=== PATIENT | female | born 1990 | race Caucasian/White ===

== ENCOUNTER 2016-10-18 02:08 | Emergency (ER) | payer SELFPAY ==
[~2016-10-18 02:08] MED LIST: AUGMENTIN 875-1 EAC2 PO; LASIX40 M1 PO; NO HOME MEDICATION XX; NORCO 5-325 TA1 EACH PO; POTASSIUM CHLO20 ME3 PO; PROBIOTIC1 EA10 PO; ZOFRAN ODT4 MG PO
[2016-10-18 03:20] LABS: ANION GAP 8 mmol/L (0-20); BLOOD UREA NITROGEN 12 mg/dl (6-24); C-REACTIVE PROTEIN 4.6 mg/dl (0-0.9); CALCIUM 8.8 mg/dl (8.5-10.5); CARBON DIOXIDE-VENOUS 30 mmol/L (22-32); CHLORIDE 105 mmol/l (96-110); CREATININE 0.87 mg/dl (0.50-1.10); GLUCOSE 127 mg/dL (70-110); POTASSIUM 4.3 mmol/L (3.7-5.1); SODIUM 139 mmol/L (135-145); eGFR VALUE FOR BLACK >90 mL/Min
[2016-10-18 03:34] LABS: PREGNANCY-SERUM NEGATIVE (NEGATIVE)
[2016-10-18 04:05] LABS: BASO % 0.3 % (0-2); EOS % 1.4 % (0-7); EOSINOPHIL ABSOLUTE COUNT 0.1 tho/cmm (0.0-0.7); HCT-HEMATOCRIT 34.3 % (34.0-49.0); HGB-HEMOGLOBIN 9.7 gm/dl (12.0-15.5); IMMATURE GRANULOCYTES ABSOLUTE 0.07 tho/cmm (0-0.03); IMMATURE GRANULOCYTES PERCENT 0.8 % (0-0.3); LYMPH % 24.2 % (20-45); LYMPH ABSOLUTE COUNT 2.2 tho/cmm (0.8-4.5); MCH (MEAN CORPUSCULAR HGB) 20.1 pg (28.0-32.0); MEAN PLATELET VOLUME 8.7 cmc (9.4-12.4); MONO % 5.5 % (0-12); MONOCYTE ABSOLUTE COUNT 0.5 tho/cmm (0.0-1.2); NEUTROPHIL ABSOLUTE COUNT 6.1 tho/cmm (1.6-8.0); NEUTROPHIL-AUTOMATED 6.1 tho/cmm (1.6-8.0); NEUTROPHILS % 67.8 % (40-80); PLATELET COUNT 327 tho/cmm (150-450); RED BLOOD COUNT 4.83 mil/cmm (4.00-5.20); RED CELL DISTRIBUTION WIDTH 18.8 % (12.4-16.4)
[2016-10-18 04:07] LABS: MCHC MEAN CORPUSCULAR HGB CONC 28.3 % (32.0-36.0)
[2016-10-18] MEDS ORDERED: BACTRIM DS TAB1 EAC2 PO (05:42)
[2016-12-13] MEDS ORDERED: NO MEDS (02:01)
[2016-12-18] MEDS ORDERED: LASIX40 M1 PO (17:34)
[2016-12-18] MEDS ORDERED: CIPRO500 M2 PO (17:35)
[2016-12-18] MEDS ORDERED: SILVADENE20 G1 TOP (17:45)
[2017-01-02] MEDS ORDERED: CIPRO250 M2 PO (13:56)
[2017-01-02] MEDS ORDERED: CULTURELLE1 EAC1 PO (14:01)
[2017-01-02] MEDS ORDERED: IRON325 M3 PO (14:03)
== END 2016-10-18 06:00 ==
LOC: EDMED 02:08
PROVIDERS: Emergency Medicine
DX: L97.929 Non-pressure chronic ulcer of unspecified part of left lower leg with unspecified severity (principal); E66.01 Morbid (severe) obesity due to excess calories; D64.9 Anemia, unspecified; I10 Essential (primary) hypertension; F17.210 Nicotine dependence, cigarettes, uncomplicated